=== PATIENT | male | born 1950 | race Caucasian/White ===

== ENCOUNTER 2018-06-20 15:38 | Emergency (ER) | payer OTHER, BC ==
[2018-06-20] MEDS ORDERED: NS 1,000 ML IV ONE (16:12)
--- NOTE | 2018-06-20 16:14 | EDPHY ---
H & P Stated Complaint: rectal bleed Time Seen by Provider: 06/20/18 16:01 HPI/ROS: CHIEF COMPLAINT: Bright red blood per rectum HISTORY OF PRESENT ILLNESS: The patient is a 67-year-old diabetic male who comes to the emergency department complaining of bright red blood per rectum. He has had 5 episodes today. The have not been mixed with stool. He does have a history of hemorrhoids. Also history of appendectomy. No other abdominal surgeries. No vomiting. No pain. No lightheadedness or dizziness. No chest pain or shortness of breath. He does feel fatigued but states that that is because he is traveling and has been very active. The patient reports that he was on an unknown antibiotic for 10 days that he finished last week for a prepatellar bursitis that is now resolved. Severity: Moderate Modifying factors: None REVIEW OF SYSTEMS: Constitutional: denies: chills, fever, recent illness, recent injury EENTM: denies: blurred vision, double vision, nose congestion Respiratory: denies: cough, shortness of breath Cardiac: denies: chest pain, irregular heart rate, lightheadedness, palpitations Gastrointestinal/Abdominal: See HPI denies: abdominal pain, diarrhea, nausea, vomiting Genitourinary: denies: dysuria, frequency, hematuria, pain Musculoskeletal: denies: joint pain, muscle pain Skin: denies: lesions, rash, jaundice, bruising Neurological: denies: headache, numbness, paresthesia, tingling, dizziness, weakness Hematologic/Lymphatic: denies: blood clots, easy bleeding, easy bruising Immunologic/allergic: denies: HIV/AIDS, transplant 10 systems reviewed and negative except as noted EXAM: GENERAL: Well-appearing, well-nourished and in no acute distress. HEAD: Atraumatic, normocephalic. EYES: Pupils equal round and reactive to light, extraocular movements intact, sclera anicteric, conjunctiva are normal. ENT: TMs normal, nares patent, oropharynx clear without exudates. Moist mucous membranes. NECK: Normal range of motion, supple without lymphadenopathy or JVD. LUNGS: Breath sounds clear to auscultation bilaterally and equal. No wheezes rales or rhonchi. HEART: Regular rate and rhythm without murmurs, rubs or gallops. ABDOMEN: Soft, nontender, normoactive bowel sounds. No guarding, no rebound. No masses appreciated. : Rectal scope performed. Patient with multiple internal hemorrhoids visualize but do not currently appear to be bleeding. Dark stool sample from above the hemorrhoids. BACK: No CVA tenderness, no spinal tenderness, step-offs or deformities EXTREMITIES: Normal range of motion, no pitting or edema. No clubbing or cyanosis. NEUROLOGICAL: Cranial nerves II through XII grossly intact. Normal speech, normal gait. 5/5 strength, normal movement in all extremities, normal sensation , normal reflexes PSYCH: Normal mood, normal affect. SKIN: Warm, dry, normal turgor, no visible rashes or lesions. Source: Patient Exam Limitations: No limitations - Personal History Current Tetanus/Diphtheria Vaccine: Yes Current Tetanus Diphtheria and Acellular Pertussis (TDAP): Yes - Medical/Surgical History Hx Asthma: No Hx Chronic Respiratory Disease: No Hx Diabetes: Yes Hx Cardiac Disease: Yes Hx Renal Disease: No Hx Cirrhosis: No Hx Alcoholism: No Hx HIV/AIDS: No Hx Splenectomy or Spleen Trauma: No Other PMH: DM2, CAD, appy, tonsilectomy, uvulostomy - Family History Significant Family History: No pertinent family hx - Social History Smoking Status: Never smoked Alcohol Use: None Constitutional: Initial Vital Signs Temperature (C) 36.7 C 06/20/18 15:49 Heart Rate 84 06/20/18 15:49 Respiratory Rate 16 06/20/18 15:49 Blood Pressure 134/70 H 06/20/18 15:49 O2 Sat (%) 96 06/20/18 15:49 O2 Delivery Mode Room Air Allergies/Adverse Reactions: clopidogrel [From Plavix] Allergy (Verified 06/20/18 15:46) diazepam [From Valium] Allergy (Verified 06/20/18 15:46) fentanyl Allergy (Verified 06/20/18 15:46) isosorbide [From Imdur] Allergy (Verified 06/20/18 15:46) midazolam [From Versed] Allergy (Verified 06/20/18 15:46) Home Medications: Medication Instructions Recorded Aspirin 81mg (*) 06/20/18 Hydrocodone-Acetamin 10-300 mg 06/20/18 Invokana 06/20/18 Ketoconazole 06/20/18 Levemir 06/20/18 Losartan Potassium 06/20/18 Lovastatin 06/20/18 Meloxicam 06/20/18 Metformin HCl 06/20/18 Metoprolol Succinate 06/20/18 Multivitamins 06/20/18 Nitroglycerin 06/20/18 [place]-3 06/20/18 Selsun Blue 06/20/18 Vitamin B12 06/20/18 Medical Decision Making ED Course/Re-evaluation: 5:30 p.m. the patient's lab work is reassuring. He is currently asymptomatic. Vital signs are stable. He went to the bathroom here and did not have any more blood. He is eager to go home and refuses admission. I encouraged him several times to be admitted we discussed concerns that he could have severe bleeding suddenly. I am concerned because there seems to bleeding above his hemorrhoids. He persists in wanting to go home. I Told him to call an ambulance if he begins to feel faint or lightheaded or if he has more bleeding. He agrees to this. Differential Diagnosis: Partial list of the Differential diagnosis considered include but were not limited to; hemorrhoids, lower GI bleed, upper GI bleed and although unlikely based on the history and physical exam, I also considered dissection, ischemia, obstruction. I discussed these differential diagnoses and the plan with the patient as well as the usual and expected course. The patient understands that the diagnosis is provisional and that in medicine we are not always correct and that further workup is often warranted. Usual and customary warnings were given. All of the patient's questions were answered. The patient was instructed to return to the emergency department should the symptoms at all worsen or return, otherwise to followup with the physician as we discussed. - Data Points Laboratory Results: Laboratory Results 06/20/18 16:10 06/20/18 16:10 06/20/18 06/20/18 06/20/18 16:10 16:10 16:10 WBC 9.94 10^3/uL H 10^3/uL (3.80-9.50) RBC 5.08 10^6/uL 10^6/uL (4.40-6.38) Hgb 15.0 g/dL g/dL (13.7-17.5) Hct 44.8 % % (40.0-51.0) MCV 88.2 fL fL (81.5-99.8) MCH 29.5 pg pg (27.9-34.1) MCHC 33.5 g/dL g/dL (32.4-36.7) RDW 13.3 % % (11.5-15.2) Plt Count 330 10^3/uL 10^3/uL (150-400) MPV 9.9 fL fL (8.7-11.7) Neut % (Auto) 52.4 % % (39.3-74.2) Lymph % (Auto) 34.8 % % (15.0-45.0) [place] % (Auto) 10.5 % % (4.5-13.0) Eos % (Auto) 1.4 % % (0.6-7.6) Baso % (Auto) 0.6 % % (0.3-1.7) Nucleat RBC Rel Count 0.0 % % (0.0-0.2) Absolute Neuts (auto) 5.21 10^3/uL 10^3/uL (1.70-6.50) Absolute Lymphs (auto) 3.46 10^3/uL H 10^3/uL (1.00-3.00) Absolute Monos (auto) 1.04 10^3/uL H 10^3/uL (0.30-0.80) Absolute Eos (auto) 0.14 10^3/uL 10^3/uL (0.03-0.40) Absolute Basos (auto) 0.06 10^3/uL 10^3/uL (0.02-0.10) Absolute Nucleated RBC 0.00 10^3/uL 10^3/uL (0-0.01) Immature Gran % 0.3 % % (0.0-1.1) Immature Gran # 0.03 10^3/uL 10^3/uL (0.00-0.10) Sodium 138 mEq/L mEq/L (135-145) Potassium 4.5 mEq/L mEq/L (3.3-5.0) Chloride 103 mEq/L mEq/L (97-110) Carbon Dioxide 23 mEq/l mEq/l (22-31) Anion Gap 12 mEq/L mEq/L (6-14) BUN 24 mg/dL H mg/dL (7-23) Creatinine 1.1 mg/dL mg/dL (0.7-1.3) Estimated GFR > 60 Glucose 181 mg/dL H mg/dL (70-100) Calcium 9.9 mg/dL mg/dL (8.5-10.4) Total Bilirubin 0.9 mg/dL mg/dL (0.1-1.4) Conjugated Bilirubin 0.4 mg/dL mg/dL (0.0-0.5) Unconjugated Bilirubin 0.5 mg/dL mg/dL (0.0-1.1) AST 34 IU/L IU/L (17-59) ALT 40 IU/L IU/L (21-72) Alkaline Phosphatase 49 IU/L IU/L (38-126) Total Protein 7.7 g/dL g/dL (6.3-8.2) Albumin 4.4 g/dL g/dL (3.5-5.0) Lipase 157 IU/L IU/L (23-300) Stool Occult Bld Scrn POSITIVE H (NEGATIVE) Medications Given: Discontinued Medications Sodium Chloride (Ns) 1,000 mls @ 0 mls/hr IV EDNOW ONE; Wide Open PRN Reason: Protocol Stop: 06/20/18 16:13 Last Admin: 06/20/18 16:19 Dose: 1,000 mls Departure - Departure Disposition: Home, Routine, Self-Care Clinical Impression: Lower GI bleeding, Hemorrhoids, internal Condition: Fair Instructions: Hemorrhoids (ED), Rectal Bleeding (ED) Referrals: EAMON JEAN MD [Other] - As per Instructions ED,PHYSICIAN ONDUTY [Medical Doctor] - 1 day, if not improved
[2018-06-20 16:27] LABS: PLATELET COUNT 330 10^3/uL (150-400)
[2018-06-20 17:38] VITALS: BP 129/82
== END 2018-06-20 17:37 | disposition home or self-care (01) ==
DX: K62.5 Hemorrhage of anus and rectum (principal); K64.9 Unspecified hemorrhoids; E11.9 Type 2 diabetes mellitus without complications; E86.9 Volume depletion, unspecified; Z79.899 Other long term (current) drug therapy